=== PATIENT | female | born 1945 ===

== ENCOUNTER 2019-12-31 10:30 | Observation (INO) ==
[2019-12-31] MEDS ORDERED: cefTRIAXone 1 gm/50 mL NS BAG 1 GM/50 ML BAG IV ONE (10:45)
[2019-12-31 12:47] LABS: ABS Basophils 0.1 10^3/ul (0-0.2); ABS Eosinophils 0.3 10^3/ul (0-0.6); ABS Lymphocytes 1.5 10^3/ul (1.0-4.8); ABS Monocytes 0.5 10^3/ul (0-0.8); Eosinophil % 4.1 %; Hematocrit 35 % (35-47); Hemoglobin 11.9 g/dL (12.0-16.0); Lymphocyte % 20.6 %; Mean Corpuscular HGB Conc 34 g/dL (31-36); Mean Corpuscular Hemoglobin 31 pg (27-31); Mean Corpuscular Volume 91 fL (80-97); Mean Platelet Volume 9.2 fL (7.4-10.4); Nucleated Red Blood Cells % 0.1; Platelet Count 198 10^3/uL (150-450); Red Blood Count 3.87 10^6 /uL (3.70-4.87); Red Cell Distribution Width 15 % (10-15); White Blood Count 7.3 10^3/uL (3.5-10.8)
[2019-12-31 13:28] LABS: Albumin 4.2 g/dL (3.2-5.2); Albumin/Globulin Ratio 1.8 (1-3); BUN/Creatinine Ratio 17.4 (8-20); Calcium 7.7 mg/dL (8.6-10.3); EGFR African American 55.5 (>60); EGFR Non-African American 45.9 (>60); Globulin 2.3 g/dL (2-4); Potassium 4.3 mmol/L (3.5-5.0); Total Bilirubin 0.4 mg/dL (0.2-1.0); Total Protein 6.5 g/dL (6.4-8.9)
[2019-12-31] MEDS ORDERED: Iohexol 180 (CONTRAST) 10 ML SDV IV ONE (16:11)
[2019-12-31] MEDS ORDERED: Midazolam 2 mg/2 ml VIAL 1 mg/ml 2 ml VIAL (2 mg) ONE (19:14)
[2019-12-31] MEDS ORDERED: fentaNYL 100 mcg/2 ml 50 MCG/ML VIAL ONE (19:14)
[2019-12-31] MEDS ORDERED: Propofol 10 MG/ML 20 ML BTL ONE (19:14)
[2019-12-31] MEDS ORDERED: oxyCODONE/Acetamin 5/325 mg TAB PO PRN (21:11)
[2019-12-31] MEDS: NS 0.9% 1000 ml BAG 1,000 ML IV SCH (21:30)
[2020-01-01] MEDS ORDERED: cefTRIAXone ADVAN VIAL 1 GM in NS 0.9% 50 ML 50 ML IVPB ONE (07:00)
[2020-01-01 07:31] VITALS: BP 127/73
[2020-01-01] MEDS ORDERED: CALCIUM CARBONATE VITAMIN D3 PO SCH ×2 (09:00→18:00)
[2020-01-01] MEDS ORDERED: Calcium/Vitamin D TAB 250/125 TAB PO SCH ×2 (09:00→18:00)
[2020-01-01] MEDS ORDERED: CALCITRIOL 0.5 MCG PO SCH (09:00)
[2020-01-01] MEDS ORDERED: VITAMIN D3 PO SCH ×2 (09:00→18:00)
[2020-01-01] MEDS: NS 0.9% 1000 ml BAG 1,000 ML IV SCH (09:52)
== END 2020-01-01 11:13 | disposition home or self-care (01) ==
LOC: ED 10:30 → SSU 17:42 → OR 17:42
PROVIDERS: ADMIT Nurse Practitioner; ATTEND Internal Medicine